=== PATIENT | male | born 2000 | race African-American/Black ===

== ENCOUNTER 2021-05-08 15:27 | Emergency (ER) | payer OTHER, SELFPAY ==
[2021-05-08 15:29] VITALS: BP 140/90; PULSE 71; RESP 14; TEMP 36.6; O2SAT 100
--- NOTE | 2021-05-08 15:57 | ED.GENADULT ---
HPI - General Adult General Chief complaint: Dental/Oral Stated complaint: Toothache Time Seen by Provider: 05/08/21 15:42 Source: patient Mode of arrival: ambulatory Limitations: no limitations History of Present Illness HPI narrative: Patient is 21-year-old male with chief complaint of dental pain over the past few days. Patient reports that 2 months ago he had a dental pain to the same right upper molar where the tooth was broken and he took antibiotics and pain medication and made a dentist appointment. He reports that the discomfort resolved and he missed his dentist appointment due to work. Patient reports a few days ago the pain presented again. He reports that he called to make a dentist appointment but cannot get in for approximately 1 month. The patient put dental wax into the area. He denies drainage from the are or other symptoms. Related Data Allergies Allergy/AdvReac Type Severity Reaction Status Date / Time No Known Allergies Allergy Verified 05/08/21 16:01 Review of Systems Review of Systems: CONSTITUTIONAL: Denies fever, chills, or sweats. EYES: Denies visual changes, redness, or discharge. ENT: Reports dental pain Denies rhinorrhea, congestion, sore throat, or otalgia. CARDIOVASCULAR: Denies chest pain, palpitations, or edema. RESPIRATORY: Denies cough or dyspnea. GASTROINTESTINAL: Denies abdominal pain, nausea, vomiting, or diarrhea. GENITOURINARY: Denies dysuria or hematuria. SKIN: Denies rash or itching. MUSCULOSKELETAL: Denies back pain, joint pain, or myalgia. NEUROLOGIC: Denies headache, numbness, dizziness, or weakness. PSYCHIATRIC: Denies anxiety or depression. Exam Narrative: GENERAL: Well-appearing, well-nourished, and in no acute distress. HEAD: Normocephalic, atraumatic. EYES: PERRLA and EOMI. ENT: Nares clear, no rhinorrhea or epistaxis. Mucous membranes moist. Oropharynx without tonsillar hypertrophy exudate or other lesions. Right upper molar fractured. No abscess seen. Some dental wax remnants seen. CHEST: Clear to auscultation. No respiratory distress. No wheezes rales or rhonchi HEART: Regular rate and rhythm. No murmur heard. Normal peripheral pulses.. SKIN: Warm, dry, no rash. NEURO: No focal deficits. Alert and oriented x3. PSYCH: Normal mood and affect. Course Vital Signs Vital signs: Vital Signs Temperature 97.8 F 05/08/21 15:29 Pulse Rate 71 05/08/21 15:29 Respiratory Rate 14 05/08/21 15:29 Blood Pressure 140/90 05/08/21 15:29 Pulse Oximetry 100 05/08/21 15:29 Temperature 97.8 F 05/08/21 15:29 Pulse Rate 71 05/08/21 15:29 Respiratory Rate 14 05/08/21 15:29 Blood Pressure 140/90 05/08/21 15:29 Pulse Oximetry 100 05/08/21 15:29 Medical Decision Making MDM Narrative Medical decision making narrative: Results in the patient the importance of taking antibiotics and following up with dentist for definitive treatment. Patient return to emergency department if he has any emergent symptoms. Vital Signs Vital Signs: Vital Signs Temperature 97.8 F 05/08/21 15:29 Pulse Rate 71 05/08/21 15:29 Respiratory Rate 14 05/08/21 15:29 Blood Pressure 140/90 05/08/21 15:29 Pulse Oximetry 100 05/08/21 15:29 Temperature 97.8 F 05/08/21 15:29 Pulse Rate 71 05/08/21 15:29 Respiratory Rate 14 05/08/21 15:29 Blood Pressure 140/90 05/08/21 15:29 Pulse Oximetry 100 05/08/21 15:29 Discharge Plan Discharge Clinical Impression: Toothache Patient Disposition: Home, Self-Care Condition: Stable Instructions: Antibiotic Form, Toothache (ED) Additional Instructions: Take Augmentin as instructed. Tylenol and ibuprofen as bottle instructs, if you can tolerate them. Take naproxen as instructed. Do not take any other NSAIDs with this medication. You may supplement with Tylenol if needed. Take tramadol as directed as needed for breakthrough pain. Follow up with dentist for definitive treatment. Return to the ER
[2021-05-08] MEDS: traMADol HCL (*CRX) 50 MG TABLET PO (16:30)
== END 2021-05-08 16:34 | disposition home or self-care (01) ==
LOC: ANHED 16:24
PROVIDERS: Emergency Provider Emergency Medicine
DX: K08.89 Other specified disorders of teeth and supporting structures (principal)
CPT/HCPCS: 99283; A9270

== ENCOUNTER 2024-02-10 01:35 | Emergency (ER) | payer OTHER, SELFPAY ==
--- NOTE | ~2024-02-10 | XR_ITS ---
Left Shoulder Technique: AP and scapular Y views were obtained. Clinical History: Dislocation Findings: No fracture or dislocation is seen. Osseous alignment is anatomic. The glenohumeral and acr omioclavicular joint spaces are preserved. Soft tissues are unremarkable. Impression: Unremarkable left shoulder radiographs. Reviewed, dictated and finalized at [facility]. Impression: Unremarkable left shoulder radiographs.
[2024-02-10 01:36] VITALS: BP 156/94; PULSE 81; RESP 22; TEMP 36.5; O2SAT 99
--- NOTE | 2024-02-10 04:37 | PC.NURSE ---
call x 2 no answer
== END 2024-02-10 04:57 | disposition left against medical advice (07) ==
LOC: ANHED 04:55
PROVIDERS: Emergency Provider Emergency Medicine
DX: S43.005A Unspecified dislocation of left shoulder joint, initial encounter (principal); X50.1XXA Overexertion from prolonged static or awkward postures, initial encounter
CPT/HCPCS: 73030; 99199